=== PATIENT | female | born 1975 | race Hispanic/Latino ===

== ENCOUNTER 2021-09-05 01:26 | Emergency (ER) | payer SELFPAY ==
[~2021-09-05] VITALS: Ht 121.9 cm; Wt 47.2 kg
[2021-09-05] MEDS ORDERED: CEFTRIAXONE 1G VIAL IM ONE (02:00)
[2021-09-05] MEDS ORDERED: SOLU-MEDROL 125MG VIAL IM ONE (02:00)
[2021-09-05 02:22] LABS: APPEARANCE,URINE Cloudy (CLEAR); BILIRUBIN,URINE Small (NEGATIVE); COLOR,URINE Dark Yellow (YELLOW); GLUCOSE, URINE (UA) Negative (NEGATIVE); KETONES,URINE >=80 mg/dL (NEGATIVE); LEUKOCYTE ESTERASE ,URINE Moderate (NEGATIVE); NITRATE,URINE Negative (NEGATIVE); OCCULT BLOOD,URINE Large (NEGATIVE); PH,URINE 5.5 (5.0-8.0); PROTEIN,URINE POS 1+ mg/dL (NEGATIVE)
[2021-09-05 02:30] LABS: BACTERIA,URINE Rare /HPF (None Seen); MUCUS,URINE Moderate LPF (None Seen); SQUAMOUS EPITHELIAL CELL,UR Many /HPF (0-2); WBC,URINE 0-1 /HPF (0-1)
[2021-09-05 02:35] LABS: BASOPHILS % (AUTO) 0.9 % (0.0-5.0); EOSINOPHILS % (AUTO) 0.8 % (0.0-8.0); HEMATOCRIT 42.5 % (36-48); LYMPHOCYTES % (AUTO) 20.6 % (21.0-51.0); MEAN CORPUSCULAR HGB CONC 32.5 g/dL (32.0-36.0); MEAN CORPUSCULAR VOLUME 86.2 fL (79-99); MONOCYTES % (AUTO) 4.4 % (3.0-13.0); PLATELET COUNT (AUTO) 174 K/uL (130-400); RED BLOOD CELL COUNT(AUTO) 4.93 MIL/uL (4.00-5.50); RED CELL DISTRIBUTION WIDTH 13.5 % (11.0-15.5); WHITE BLOOD COUNT (AUTO) 7.7 K/uL (4.8-10.8)
[2021-09-05 02:42] LABS: CREATININE 0.8 mg/dL (0.5-1.5); POTASSIUM 3.8 mmol/L (3.5-5.1)
[2021-09-05 02:46] LABS: ALBUMIN 3.9 g/dL (3.5-5.0); BILIRUBIN,TOTAL 0.7 mg/dL (0.2-1.0); TOTAL PROTEIN, SERUM 7.7 g/dL (6.0-8.3)
[2021-09-05 02:52] VITALS: BP 126/72
[2021-09-05] MEDS ORDERED: CEPH500B PO ×2 (02:56→02:58)
[2021-09-05] MEDS ORDERED: SOLU-MEDROL 125MG VIAL ONE (03:04)
== END 2021-09-05 03:13 | disposition home or self-care (01) ==
LOC: EDH 01:26
DX: K04.7 Periapical abscess without sinus (principal); F41.9 Anxiety disorder, unspecified; Z98.890 Other specified postprocedural states
CPT/HCPCS: 36415; 80053; 81001; 82010; 85025; 87088; 96372 ×2; 99284; J0696; J2930

== ENCOUNTER 2021-09-12 01:17 | Emergency (ER) | payer SELFPAY ==
[~2021-09-12] VITALS: Ht 132.1 cm; Wt 44.5 kg
[~2021-09-12 01:17] MED LIST: CEPH500B PO
[2021-09-12] MEDS ORDERED: UNASYN 1.5GM+NS 100ML IV ONE (02:00)
[2021-09-12] MEDS ORDERED: 0.9%NACL 1000ML 1,000 ML IV ONE ×2 (02:00→02:15)
[2021-09-12] MEDS ORDERED: AMPICILLIN/SULBAC 1.5GM VIAL ONE (02:14)
[2021-09-12] MEDS ORDERED: 0.9%NACL 100ML 100 ML ONE (02:15)
[2021-09-12 02:20] LABS: BASOPHILS % (AUTO) 0.6 % (0.0-5.0); EOSINOPHILS % (AUTO) 1.6 % (0.0-8.0); HEMATOCRIT 44.8 % (36-48); LYMPHOCYTES % (AUTO) 18.8 % (21.0-51.0); MEAN CORPUSCULAR HEMOGLOBIN 27.8 pg (27.0-33.0); MEAN CORPUSCULAR HGB CONC 32.8 g/dL (32.0-36.0); MEAN CORPUSCULAR VOLUME 84.8 fL (79-99); MONOCYTES % (AUTO) 4.2 % (3.0-13.0); NEUTROPHILS % (AUTO) 74.6 % (40.0-77.0); PLATELET COUNT (AUTO) 177 K/uL (130-400); RED BLOOD CELL COUNT(AUTO) 5.28 MIL/uL (4.00-5.50); RED CELL DISTRIBUTION WIDTH 12.7 % (11.0-15.5); WHITE BLOOD COUNT (AUTO) 9.4 K/uL (4.8-10.8)
[2021-09-12 02:35] LABS: CREATININE 1.1 mg/dL (0.5-1.5); POTASSIUM 3.9 mmol/L (3.5-5.1)
[2021-09-12 02:40] LABS: ALBUMIN 4.2 g/dL (3.5-5.0); BILIRUBIN,TOTAL 0.7 mg/dL (0.2-1.0); TOTAL PROTEIN, SERUM 8.4 g/dL (6.0-8.3)
[2021-09-12 04:55] VITALS: BP 119/68
[2021-09-12] MEDS ORDERED: AMOX-429 PO (05:13)
== END 2021-09-12 05:34 | disposition home or self-care (01) ==
LOC: EDH 01:17
DX: K04.7 Periapical abscess without sinus (principal); M27.3 Alveolitis of jaws
CPT/HCPCS: 36415; 80053; 85025; 96365; 96366; 99284; J0295 ×2; J7030; 96375